=== PATIENT | male | born 1955 | race Caucasian/White ===

== ENCOUNTER 2018-06-19 08:38 | Inpatient (IN) | payer OTHER ==
[~2018-06-19] VITALS: Ht 157.5 cm; Wt 68.5 kg
[2018-06-19 08:50] VITALS: BP 147/64
--- NOTE | 2018-06-19 08:55 | NUR ---
c/o lower abd pain 8/10, n/v/d x 2 days. denies fever. abdomen is soft/flat/non tender, bowel sounds present x4, pt reports loss of appetite. SKIN IS PINK/WARM/DRY; AAOX4 WITH EVEN AND STEADY GAIT; LUNGS CLEAR BL; HR EVEN AND REGULAR; PT DENIES ANY FEVER, CP, SOB, OR COUGH AT THIS TIME; VSS; PATIENT POSITIONED FOR COMFORT; HOB ELEVATED; BEDRAILS UP X1; BED DOWN. ER MD MADE AWARE OF PT STATUS.
--- NOTE | 2018-06-19 09:00 | NUR ---
Patient ambulated to bed 11. RN evaluating patient at bedside.
--- NOTE | 2018-06-19 10:06 | NUR ---
Dr. Albarran evaluating patient at bedside.
[2018-06-19] MEDS ORDERED: PROG1 PO (10:07)
[2018-06-19] MEDS ORDERED: AMLO10TA PO ×2 (10:14→15:09)
[2018-06-19] MEDS ORDERED: CEL250 PO (10:14)
[2018-06-19] MEDS ORDERED: METO50TE2 PO (10:14)
[2018-06-19] MEDS ORDERED: PRED5TAB7 PO (10:14)
[2018-06-19] MEDS ORDERED: ASPI-1718 PO (10:14)
[2018-06-19] MEDS ORDERED: SULF-58 PO ×2 (10:14→15:09)
[2018-06-19] MEDS ORDERED: NACL 0.9% 1,000 ML IV ONE ×2 (10:37→13:10)
[2018-06-19] MEDS ORDERED: NACL 0.9% 1,000 ML IV SCH (10:37)
[2018-06-19] MEDS ORDERED: ONDANSETRON 4 MG/2 ML VIAL IVP ONE (10:40)
--- NOTE | 2018-06-19 10:53 | NUR ---
pt left to ct
--- NOTE | 2018-06-19 11:07 | NUR ---
PT RETURNED FROM CT, VSS AT THIS TIME, PT AA0X4. PT SITTING IN BED, FAMILY BEDSIDE.
[2018-06-19 11:10] LABS: APPEARANCE,URINE CLEAR (CLEAR); BILIRUBIN,URINE NEGATIVE (NEGATIVE); BLOOD, URINE 1+ (NEGATIVE); COLOR,URINE YELLOW (YELLOW); LEUKOCYTE ESTERASE ,URINE NEGATIVE (NEGATIVE); NITRITE, URINE NEGATIVE (NEGATIVE); UGLUCOSE 2+ (NEGATIVE)
[2018-06-19 11:19] LABS: RBC,URINE 0-5 /HPF (0-5); WBC,URINE 0-5 /HPF (0-5)
[2018-06-19 11:24] LABS: ALBUMIN 3.6 g/dL (3.4-5.0); AMYLASE 69 U/L (25-115); ANION GAP 14.7 (8-16); ASPARTATE AMINOTRANSFERASE 34 U/L (15-37); CARBON DIOXIDE 24.3 mmol/L (21-32); CHLORIDE 102 mmol/L (98-107); CREATININE 1.4 mg/dL (0.7-1.3); GFR ARICAN-AMERICAN 66 mL/min (>90); GLUCOSE 165 mg/dL (74-106); LIPASE 287 U/L (73-393); MAGNESIUM 1.5 mg/dL (1.8-2.4); SODIUM SERUM 137 mmol/L (136-145); TOTAL BILIRUBIN 0.7 mg/dL (0.0-1.0); UREA NITROGEN, BLOOD 21 mg/dL (7-18)
[2018-06-19 11:42] LABS: HEMATOCRIT 35.9 % (36-52); HEMOGLOBIN 12.1 g/dL (12.0-18.0); MEAN CORPUSCULAR HEMOGLOBIN 30 pg (27-31); MEAN CORPUSCULAR HGB CONC 34 g/dL (33-37); MEAN CORPUSCULAR VOLUME 88.7 fL (80-94); PLATELET COUNT (AUTO) 70 K/uL (140-450); RED BLOOD CELL COUNT(AUTO) 4.04 MIL/uL (4.20-6.10); RED CELL DISTRIBUTION WIDTH 13.4 % (11.6-13.7)
[2018-06-19 11:51] LABS: ACETONE, SERUM NEGATIVE (NEGATIVE)
[2018-06-19 11:59] LABS: WHITE BLOOD COUNT (AUTO) 1.4 K/uL (4.8-10.8)
[2018-06-19 12:06] LABS: LYMPHOCYTES % (MANUAL) 8 % (20-46)
[2018-06-19 12:07] LABS: EOSINOPHILS % (MANUAL) 2 % (0-4); MONOCYTES % (MANUAL) 12 % (5-12)
[2018-06-19] MEDS ORDERED: ONDANSETRON 4 MG/2 ML VIAL IVP PRN (13:00)
[2018-06-19] MEDS ORDERED: ACETAMINOPHEN 325 MG TAB PO PRN (13:00)
[2018-06-19] MEDS ORDERED: HYDROcodone/APAP 7.5/325 MG 1 TAB PO PRN (13:00)
--- NOTE | 2018-06-19 13:15 | NUR ---
PATIENT ARRIVED ON UNIT VIA WHEELCHAIR. RECEIVED HAND OFF REPORT FROM ER NURSE. DANNY. PT IS AWAKE AND STABLE IN BED.
[2018-06-19] MEDS ORDERED: DEXTROSE 50% 50 ML SYR IVP PRN (13:30)
--- NOTE | 2018-06-19 13:30 | NUR ---
AT PT BEDSIDE. DR USING BLUE PHONE TO COMMUNICATE WITH PATIENT.
[2018-06-19 13:51] LABS: BARBITURATE, URINE NEG. ng/ml (NEG <=200); BENZODIAZEPINE, URINE NEG. ng/mL (NEG <=200); CANNABINOID, URINE NEG. ng/mL (NEG <=50); COCAINE, URINE NEG. ng/mL (NEG <=300); OPIATE, URINE NEG. ng/mL (NEG <=2000); PHENCYCLIDINE SCREEN,URINE NEG. ng/mL (NEG <=25)
[2018-06-19 13:54] LABS: PROTHROMBIN TIME 10.4 secs (10.8-13.4)
[2018-06-19 13:59] LABS: FREE T4 (FREE THYROXINE) 1.14 ng/dL (0.76-1.46); PHOSPHORUS 2.2 mg/dL (2.5-4.9); THYROID STIMULATING HORMONE 1.62 uIU/mL (0.34-3.74)
--- NOTE | 2018-06-19 14:00 | NUR ---
PLACED PT ON NEUTROPENIC PRECAUTIONS.
[2018-06-19] MEDS ORDERED: METO25TA PO (15:10)
--- NOTE | 2018-06-19 15:15 | NUR ---
PT COMPLAINED OF HEAD PAIN. WILL ADMINISTER MEDICATION PER ORDERS.
--- NOTE | 2018-06-19 17:00 | NUR ---
FREQUENT ROUNDING ON PT. PT STABLE NO SIGNS OF DISTRESS. WILL CONTINUE TO MONITOR. ALL SAFETY MEASURES ARE IN PLACE.
--- NOTE | 2018-06-19 19:19 | NUR ---
ENDORSED PT TO FOUNDRY OPERATOR NURSE PT IS STABLE AND IN NO APPARENT DISTRESS.
--- NOTE | 2018-06-19 19:55 | NUR ---
Received endorsement from AM shift RN; patient is A/Ox4, able to make needs known, ambulatory, Telugu speaking. at bedside. Introduced self, updated board. No SOB or distress noted, on room air. On neutropenic precautions; observed and maintained. IV site on right hand, 22 gauge, intact, running IVF at 80mL/hr. Skin tact. Bed in the lowest position, annmarie light within reach. Initial assessment done. Will continue to monitor.
[2018-06-19] MEDS: BLOOD GLUCOSE MONITORING 1 DEV DEV FS SCH (21:00)
[2018-06-19] MEDS ORDERED: MYCOPHENOLATE 250 MG CAP PO SCH (21:00)
[2018-06-19] MEDS ORDERED: SULFAMETH/TRIMETH DS 800/160MG 1 TAB PO SCH (21:00)
[2018-06-19] MEDS ORDERED: DOCUSATE SODIUM 100 MG GELCAP PO SCH (21:00)
--- NOTE | 2018-06-19 21:55 | NUR ---
Due meds given; asked patient about bowel movement frequency; stated he has not had a bowel movement since 06/17/2018. Teaching given about need for a stool sample and placed collection hat on toilet. Verbalized understanding.
[2018-06-19] MEDS: TACROLIMUS 0.5 MG CAP PO SCH (21:59)
[2018-06-19] MEDS: MAGNESIUM OXIDE 400 MG TAB PO SCH (22:00)
[2018-06-19] MEDS: METOPROLOL 25 MG TAB PO SCH (22:00)
[2018-06-19] MEDS: DEXT 5% /NACL 0.9% 1,000 ML IV SCH (22:32)
--- NOTE | 2018-06-19 22:35 | NUR ---
Checks made, patient is watching TV, no SOB or distress noted.
[2018-06-20] VITALS: BP 164/67
--- NOTE | 2018-06-20 00:01 | NUR ---
Vitals taken, no distress noted.
--- NOTE | 2018-06-20 02:20 | NUR ---
Rounds made, no SOB or distress noted.
--- NOTE | 2018-06-20 04:24 | NUR ---
Frequent checks made. Patient asleep, eyes closed, visible chest rise and fall noted.
[2018-06-20 06:34] LABS: BASOPHILS % (AUTO) 0.6 % (0.0-2.0); EOSINOPHILS % (AUTO) 2.2 % (0.0-4.0); HEMATOCRIT 35.3 % (36-52); HEMOGLOBIN 11.9 g/dL (12.0-18.0); LYMPHOCYTES # (AUTO) 0.1 K/uL (2.0-11.5); LYMPHOCYTES % (AUTO) 12.1 % (20.5-51.1); MEAN CORPUSCULAR HEMOGLOBIN 30 pg (27-31); MEAN CORPUSCULAR HGB CONC 34 g/dL (33-37); MEAN CORPUSCULAR VOLUME 89.3 fL (80-94); MONOCYTES # (AUTO) 0.4 K/uL (0.8-1.0); MONOCYTES % (AUTO) 33.2 % (1.7-9.3); NEUTROPHILS # (AUTO) 0.6 K/uL (1.8-7.7); NEUTROPHILS % (AUTO) 51.9 % (42.2-75.2); PLATELET COUNT (AUTO) 67 K/uL (140-450); RED BLOOD CELL COUNT(AUTO) 3.95 MIL/uL (4.20-6.10); RED CELL DISTRIBUTION WIDTH 13.6 % (11.6-13.7)
[2018-06-20] MEDS: BLOOD GLUCOSE MONITORING 1 DEV DEV FS SCH ×4 (06:45→21:00)
[2018-06-20 06:53] LABS: ANION GAP 12.2 (8-16); CREATININE 1.3 mg/dL (0.7-1.3); POTASSIUM 4.2 mmol/L (3.5-5.1)
[2018-06-20 06:55] LABS: WHITE BLOOD COUNT (AUTO) 1.1 K/uL (4.8-10.8)
[2018-06-20 07:16] LABS: CHOL/HDL RATIO 4.6 (1-4.5)
--- NOTE | 2018-06-20 07:20 | NUR ---
Received call from lab for critical low of WBC 1.1. Dr. Capellan made aware; pending orders.
--- NOTE | 2018-06-20 07:25 | NUR ---
Endorsed patient to AM shift RN for continuity of care; patient in stable condition.
[2018-06-20 08:00] VITALS: BP 158/75
--- NOTE | 2018-06-20 08:00 | NUR ---
PATIENT WAS AWAKE, ALERT. RESPIRATION EVEN, UNLABOR ON ROOM AIR. SKIN DRY AND WARM. IV PATENT AND INTACT. DENIED PAIN, N/V AT THIS TIME. PLAN OF CARE WAS DISCUSSED WITH PATIENT. BED AT LOW POSITION, SIDE RAILS UP. CALL LIGHT WITHIN REACH.
--- NOTE | 2018-06-20 08:09 | NUR ---
PATIENT HAS BEEN SCREENED AND CATEGORIZED HIGH NUTRITION RISK. PATIENT WILL BE SEEN WITHIN 1-2 DAYS OF ADMISSION. 06/20/18-06/21/[address]
[2018-06-20] MEDS: METOPROLOL 25 MG TAB PO SCH ×2 (08:54→22:04)
[2018-06-20] MEDS: predniSONE 5 MG TAB PO SCH (08:55)
[2018-06-20] MEDS: AZITHROMYCIN 250 MG TAB PO SCH (08:55)
[2018-06-20] MEDS: TACROLIMUS 0.5 MG CAP PO SCH ×2 (08:56→22:05)
[2018-06-20] MEDS: MAGNESIUM OXIDE 400 MG TAB PO SCH ×2 (08:56→22:04)
[2018-06-20] MEDS: ASPIRIN 81 MG TAB.CHEW PO SCH (08:56)
[2018-06-20] MEDS: amLODIPine 5 MG TAB PO SCH (08:56)
[2018-06-20 09:09] LABS: MAGNESIUM 1.2 mg/dL (1.8-2.4); PHOSPHORUS 2.6 mg/dL (2.5-4.9); THYROID STIMULATING HORMONE 1.73 uIU/mL (0.34-3.74); URIC ACID 4.8 mg/dL (2.6-7.2)
--- NOTE | 2018-06-20 10:00 | NUR ---
PATIENT WAS AWAKE, ALERT. RESPIRATION EVEN, UNLABOR ON ROOM AIR. NO DISTRESS NOTED AT THIS TIME
[2018-06-20] MEDS ORDERED: MAG SULF 2000 MG/WATER PREMIX 50 ML IV SCH (11:00)
[2018-06-20] MEDS: DEXT 5% /NACL 0.9% 1,000 ML IV SCH (11:21)
--- NOTE | 2018-06-20 12:30 | NUR ---
PATIENT WAS AWAKE, ALERT, EATING LUNCH COMFORTABLY. RESPIRATION EVEN, UNLABOR ON ROOM AIR. DENIED PAIN AT THIS TIME. NO DISTRESS NOTED. FAMILY AT BEDSIDE. CALL LIGHT WITHIN REACH
[2018-06-20] MEDS: INSULIN LISPRO SLIDING SCALE 100 UNITS/ML VIAL SUBQ PRN ×3 (12:33→22:27)
--- NOTE | 2018-06-20 14:24 | NUR ---
RECEIVED A CALL FROM AIDAN FROM [facility] THIS MORNING,. 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 I CALLED AND INFORMED HER. Addendum: 06/20/18 at 1427 by Sheila Carter CM PHONE MAREK [facility] [phone]
--- NOTE | 2018-06-20 14:30 | NUR ---
PATIENT WAS RESTING COMFORTABLY. RESPIRATION EVEN, UNLABOR ON ROOM AIR. NO DISTRESS NOTED AT THIS TIME
--- NOTE | 2018-06-20 14:32 | NUR ---
06/20/18 RD INITIAL ASSESSMENT COMPLETED PLEASE REFER TO NUTRITION ASSESSMENT UNDER CARE ACTIVITY FOR ESTIMATED NUTRITIONAL NEEDS. 1. CONTINUE FULL LIQUID DIET TOLERATED 2. IF/WHEN PATIENT IS MEDICALLY STABLE CONSIDER ADVANCING DIET TO CCHO 60 GM TOLERATED 3. RECOMMEND GLUCERNA BID 4. RD PROVIDED NUTRITION EDUCATION ON NAUSEA AND VOMITING 5. RD TO FOLLOW-UP 3-5 DAYS, MODERATE RISK SHRUTHI FRAZIER RD
--- NOTE | 2018-06-20 15:30 | NUR ---
STOOL SAMPLE WAS COLLECTED AND SENT TO LAB PER ORDER
[2018-06-20 16:00] VITALS: BP 139/63
--- NOTE | 2018-06-20 16:00 | NUR ---
PATIENT WAS AWAKE, ALERT, SITTING ON THE CHAIR COMFORTABLY. RESPIRATION EVEN, UNLABOR ON ROOM AIR. NO DISTRESS NOTED AT THIS TIME
[2018-06-20] MEDS: NACL 0.9% 1,000 ML IV SCH (17:02)
--- NOTE | 2018-06-20 18:43 | NUR ---
PATIENT WAS RESTING COMFORTABLY. RESPIRATION EVEN, UNLABOR ON ROOM AIR. DENIED PAIN AT THIS TIME. IV PATENT AND INTACT. NO DISTRESS NOTED AT THIS TIME. FAMILY AT BEDSIDE. CALL LIGHT WITHIN REACH
--- NOTE | 2018-06-20 19:29 | NUR ---
ENDORSEMENT GIVEN TO FOREIGN CORRESPONDENT NURSE. PATIENT IS STABLE AT THIS TIME
--- NOTE | 2018-06-20 19:30 | NUR ---
RECEIVED REPORT FROM DAY SHIFT RN. PATIENT RESTING IN BED WITH FAMILY AT BEDSIDE, NO SIGNS OF DISTRESS ON RA. SAFETY PRECAUTIONS IN PLACE. WILL CONTINUE TO MONITOR.
--- NOTE | 2018-06-20 22:05 | NUR ---
ADMINISTERED SCHEDULED MEDICATIONS. PATIENT TOLERATED ALL MEDICATIONS WELL. NO SIGNS OF DISTRESS ON RA. WILL CONTINUE TO MONITOR.
[2018-06-21] VITALS: BP 131/62
--- NOTE | 2018-06-21 00:15 | NUR ---
PATIENT SLEEPING. VITALS STABLE. SAFETY PRECAUTIONS IN PLACE. WILL CONTINUE TO MONITOR.
--- NOTE | 2018-06-21 03:25 | NUR ---
PATIENT STILL SLEEPING. NO SIGNS OF DISTRESS. WILL CONTINUE TO MONITOR.
[2018-06-21] MEDS: NACL 0.9% 1,000 ML IV SCH ×2 (05:20→17:34)
[2018-06-21] MEDS: BLOOD GLUCOSE MONITORING 1 DEV DEV FS SCH ×4 (07:08→20:34)
--- NOTE | 2018-06-21 07:41 | NUR ---
ENDORSED PATIENT TO DAY SHIFT RN FOR CONTINUITY OF CARE. PATIENT STABLE, SAFETY PRECAUTIONS IN PLACE.
--- NOTE | 2018-06-21 07:42 | NUR ---
RECEIVED REPORT FROM HOUSEKEEPER AND LAUNDRY ASSISTANT NURSE ANGEL AT BEDSIDE FOR CONTINUITY OF CARE. PT IN STABLE CONDITION. RESPIRATIONS EVEN AND UNLABORED. IV INTACT AND PATENT. SAFETY MEASURES IN PLACE. BED IN LOW POSITION. CALL LIGHT AT BEDSIDE. WILL CONTINUE TO MONITOR.
[2018-06-21 08:00] VITALS: BP 142/60
[2018-06-21 08:18] LABS: ANION GAP 12.7 (8-16); CARBON DIOXIDE 22.5 mmol/L (21-32); CREATININE 1.3 mg/dL (0.7-1.3); POTASSIUM 4.2 mmol/L (3.5-5.1)
[2018-06-21 08:41] LABS: BASOPHILS % (AUTO) 0.5 % (0.0-2.0); EOSINOPHILS % (AUTO) 2.5 % (0.0-4.0); HEMATOCRIT 35.1 % (36-52); HEMOGLOBIN 11.9 g/dL (12.0-18.0); LYMPHOCYTES # (AUTO) 0.2 K/uL (2.0-11.5); LYMPHOCYTES % (AUTO) 13.7 % (20.5-51.1); MEAN CORPUSCULAR HEMOGLOBIN 30 pg (27-31); MEAN CORPUSCULAR HGB CONC 34 g/dL (33-37); MEAN CORPUSCULAR VOLUME 88.5 fL (80-94); MONOCYTES # (AUTO) 0.5 K/uL (0.8-1.0); MONOCYTES % (AUTO) 34.5 % (1.7-9.3); NEUTROPHILS # (AUTO) 0.6 K/uL (1.8-7.7); NEUTROPHILS % (AUTO) 48.8 % (42.2-75.2); PLATELET COUNT (AUTO) 72 K/uL (140-450); RED BLOOD CELL COUNT(AUTO) 3.96 MIL/uL (4.20-6.10); RED CELL DISTRIBUTION WIDTH 13.4 % (11.6-13.7)
[2018-06-21] MEDS: ASPIRIN 81 MG TAB.CHEW PO SCH (08:57)
[2018-06-21] MEDS: amLODIPine 5 MG TAB PO SCH (08:58)
[2018-06-21] MEDS: predniSONE 5 MG TAB PO SCH (08:58)
[2018-06-21 08:59] LABS: WHITE BLOOD COUNT (AUTO) 1.3 K/uL (4.8-10.8)
--- NOTE | 2018-06-21 08:59 | NUR ---
CRITICAL LAB WBC 1.3 DR. BECERRIL NOTIFIED.
[2018-06-21] MEDS ORDERED: SULFAMETH/TRIMETH DS 800/160MG 1 TAB PO SCH (09:00)
[2018-06-21] MEDS: METOPROLOL 25 MG TAB PO SCH ×2 (09:00→20:33)
[2018-06-21] MEDS: MAGNESIUM OXIDE 400 MG TAB PO SCH ×2 (09:00→20:33)
--- NOTE | 2018-06-21 09:00 | NUR ---
ELECTRICAL ENGINEERING TEACHER [id number] USED TO INFORM PT OF MEDICATIONS GIVEN. PT VERBALIZED UNDERSTANDING OF MEDICATIONS GIVEN. PT DENIED ANY PAIN AT THIS TIME. ALL QUESTIONS ANSWERED AT THIS TIME. BED IN LOW POSITION. CALL LIGHT INSTRUCTIONS GIVEN. CALL LIGHT AT BEDSIDE. WILL CONTINUE TO MONITOR.
[2018-06-21] MEDS: TACROLIMUS 0.5 MG CAP PO SCH ×2 (09:01→20:33)
[2018-06-21] MEDS: AZITHROMYCIN 250 MG TAB PO SCH (09:01)
--- NOTE | 2018-06-21 12:45 | NUR ---
GAVE 6 UNITS HUMALOG FOR BS AT 269. PT TOLERATED WELL. WILL CONTINUE TO MONITOR.
[2018-06-21] MEDS: INSULIN LISPRO SLIDING SCALE 100 UNITS/ML VIAL SUBQ PRN ×2 (12:56→20:44)
--- NOTE | 2018-06-21 14:30 | NUR ---
PT SITTING IN CHAIR IN STABLE CONDITION. WILL CONTINUE TO MONITOR.
--- NOTE | 2018-06-21 17:15 | NUR ---
WASHROOM CLEANER GUANACO [id number] USED TO INFORM PT OF CONTACT PRECAUTIONS.
--- NOTE | 2018-06-21 17:18 | NUR ---
PT LYING IN BED IN STABLE CONDITION WITH FAMILY AT BEDSIDE. FAMILY MEMBER INSTRUCTED TO WEAR MASK FOR NEUTROPENIC PRECAUTIONS AND GOWN AND GLOVES FOR CONTACT PRECAUTIONS DUE TO POSITIVE RESULT MDRO ECOLI.
--- NOTE | 2018-06-21 19:30 | NUR ---
GAVE BEDSIDE REPORT TO IMAGING NURSE NURSE ANGEL FOR CONTINUITY OF CARE. PT IN STABLE CONDITION.
--- NOTE | 2018-06-21 19:32 | NUR ---
RECEIVED REPORT FROM DAY SHIFT RN. PATIENT IN STABLE CONDITION. NO SIGNS OF DISTRESS ON RA. FAMILY AT BEDSIDE. WILL CONTINUE TO MONITOR
--- NOTE | 2018-06-21 19:45 | NUR ---
SPOKE TO DR. MAR ABOUT THE ADDITION OF LANTUS TO PATIENT EVENING GLUCOSE CONTROL REGIMENT. REVIEWED PREVIOUS AM GLUCOSE READINGS. PER DR. MAR CONTINUE WITH INSULIN REGIMENT SCHEDULED.
--- NOTE | 2018-06-21 19:45 | NUR ---
ALSO SPOKE TO DR. MAR ABOUT MAG LAB VALUE OF 1.2. PATIENT IS RECEIVING ORAL MAG-OXIDE AT 2100, WHICH IS HIS DAILY SUPPLEMENT. PRE DR. MAR, PROCEED WITH ORAL DOSING. NO NEED FOR IV MAG AT THIS TIME. Addendum: 06/22/18 at 0415 by Annamaria Henriquez RN MAG VALUE WAS 1.7 NOT 1.2
--- NOTE | 2018-06-21 20:33 | NUR ---
ADMINISTERED SCHEDULED MEDICATIONS. PATIENT TOLERATED WELL. VITALS STABLE. NO SIGNS OF DISTRESS ON RA. SAFETY PRECAUTIONS IN PLACE.
[2018-06-21] MEDS ORDERED: INSULIN LANTUS 100 UNITS/ML 10 ML VIAL SUBQ SCH (21:00)
--- NOTE | 2018-06-21 22:35 | NUR ---
PATIENT SLEEPING. NO SIGNS OF DISTRESS.
[2018-06-22] VITALS: BP 156/60
--- NOTE | 2018-06-22 00:30 | NUR ---
PATIENT SLEEPING, VITALS STABLE. NO SIGNS OF DISTRESS ON RA.
--- NOTE | 2018-06-22 03:13 | NUR ---
PATIENT SLEEPING BUT WAKES EASILY, NO SIGNS OF DISTRESS. WILL CONTINUE TO MONITOR.
--- NOTE | 2018-06-22 05:35 | NUR ---
PATIENT SLEEPING. NO SIGNS OF DISTRESS ON RA.
[2018-06-22] MEDS: NACL 0.9% 1,000 ML IV SCH (06:26)
[2018-06-22] MEDS: BLOOD GLUCOSE MONITORING 1 DEV DEV FS SCH ×2 (06:32→11:37)
[2018-06-22] MEDS ORDERED: AZIT250T3 PO (07:13)
--- NOTE | 2018-06-22 07:25 | NUR ---
GAVE BEDSIDE REPORT TO DAY SHIFT RN. ENDORSING FOR CONTINUITY OF CARE. PATIENT STABLE.
--- NOTE | 2018-06-22 07:27 | NUR ---
RECEIVED BEDSIDE REPORT FROM ORACLE WEBCENTER CONSULTANT NURSE FOR CONTINUITY OF CARE. PATIENT IS AOX4, SCOTTISH SPEAKING. PATIENT IS RESTING ON BED AT THIS TIME. ABLE TO FOLLOW COMMAND AND MAKE NEEDS KNOWN. DENIES PAIN, SOB, NAUSEA, VOMITING AND DIARRHEA. RESPIRATION EVEN AND UNLABORED. ON RA. NO SIGNS OF DISTRESS NOTED. IV ON R HAND 22, DRY AND INTACT, INFUSING PER MD ORDER. LEFT ARM AV FISTULA NOTED, SIGN FOR NO BP AND NO VENIPUNCTURE ON LEFT ARM POSTED. SKIN CLEAN AND INTACT. PATIENT IS ABLE TO AMBULATE AND CONTINENT. DISCUSSED PLAN OF CARE WITH PATIENT AND PATIENT VERBALIZED OK. INSTRUCTED PATIENT TO USE THE CALL LIGHT FOR ANY ASSISTANCE AND PATIENT WAS AWARE. BED IN LOW POSITION AND CALL LIGHT WITHIN REACH.
[2018-06-22 08:00] VITALS: BP 157/67
[2018-06-22] MEDS: predniSONE 5 MG TAB PO SCH (08:00)
[2018-06-22] MEDS: amLODIPine 5 MG TAB PO SCH (08:01)
[2018-06-22] MEDS: ASPIRIN 81 MG TAB.CHEW PO SCH (08:01)
--- NOTE | 2018-06-22 08:05 | NUR ---
ADMINISTERED AM MEDS PER MD ORDER, PATIENT TOLERATED WELL. PATIENT IS SITTING UP ON EDGE OF BED AND EATING BREAKFAST. NO SIGNS OF DISTRESS NOTE. INSTRUCTED PATIENT TO USE THE CALL LIGHT FOR ANY ASSISTANCE AND PATIENT WAS AWARE.
[2018-06-22 08:08] LABS: ANION GAP 15.1 (8-16); CARBON DIOXIDE 21.9 mmol/L (21-32); CREATININE 1.2 mg/dL (0.7-1.3)
[2018-06-22 08:11] LABS: HEMATOCRIT 32.3 % (36-52); HEMOGLOBIN 11.1 g/dL (12.0-18.0); MEAN CORPUSCULAR HEMOGLOBIN 30 pg (27-31); MEAN CORPUSCULAR HGB CONC 34 g/dL (33-37); MEAN CORPUSCULAR VOLUME 88.1 fL (80-94); PLATELET COUNT (AUTO) 66 K/uL (140-450); RED BLOOD CELL COUNT(AUTO) 3.67 MIL/uL (4.20-6.10); RED CELL DISTRIBUTION WIDTH 13.5 % (11.6-13.7)
[2018-06-22 08:15] LABS: MAGNESIUM 1.3 mg/dL (1.8-2.4); PHOSPHORUS 2.4 mg/dL (2.5-4.9)
--- NOTE | 2018-06-22 08:26 | NUR ---
RECEIVED CRITICAL LAB FOR WBC 1.0 FROM AM LAB. REPORTED TO DR MYLES AND WAS AWARE.
[2018-06-22 08:36] LABS: BASOPHILS % (MANUAL) 0 % (0-2); EOSINOPHILS % (MANUAL) 2 % (0-4); LYMPHOCYTES % (MANUAL) 6 % (20-46); MONOCYTES % (MANUAL) 30 % (5-12)
[2018-06-22] MEDS ORDERED: MAG SULF 2000 MG/WATER PREMIX 50 ML IV ONE (09:10)
[2018-06-22] MEDS: AZITHROMYCIN 250 MG TAB PO SCH (09:55)
[2018-06-22] MEDS: METOPROLOL 25 MG TAB PO SCH (09:56)
[2018-06-22] MEDS: MAGNESIUM OXIDE 400 MG TAB PO SCH (09:56)
[2018-06-22] MEDS: TACROLIMUS 0.5 MG CAP PO SCH (09:57)
--- NOTE | 2018-06-22 09:58 | NUR ---
B/P TAKEN; B/P 143/66, MAP 91 AND PULSE 79. ADMINISTERED MEDS PER MD ORDER, PATIENT TOLERATED WELL. ADMINISTERED IVP MG PER MD ORDER FOR LOW MG VALUE 1.3 FROM AM LAB. PATIENT IS RESTING ON BED AT THIS TIME. DENIES PAIN, SOB, NAUSEA, VOMITING AND DIARRHEA. NO SIGNS OF DISTRESS NOTED.
[2018-06-22] MEDS ORDERED: LEVOFLOXACIN 500 MG/D5W PREMIX 100 ML IV SCH (11:00)
[2018-06-22] MEDS ORDERED: LEVO750T2 PO (11:13)
[2018-06-22] MEDS ORDERED: LACT10CA1 PO (11:14)
[2018-06-22] MEDS ORDERED: INSU100S22 SUBQ (11:17)
[2018-06-22] MEDS: INSULIN LISPRO SLIDING SCALE 100 UNITS/ML VIAL SUBQ PRN (11:45)
--- NOTE | 2018-06-22 11:47 | NUR ---
PATIENT IS TALKING TO FAMILY MEMBERS AT BEDSIDE. NO SIGNS OF DISTRESS NOTED. INSTRUCTED FAMILY MEMBERS TO PUT ON PPE AT ALL TIME DUE TO PATIENT IS IN CONTACT ISOLATION AND NEUTROPENIC PRECAUTIONS, AND FAMILY MEMBERS VERBALIZED UNDERSTANDING. INSTRUCTED PATIENT TO USE CALL LIGHT FOR ANY ASSISTANCE AND PATIENT WAS AWARE.
[2018-06-22] MEDS ORDERED: SODIUM PHOS / POTASSIUM PHOS 1 PKT PDR PO SCH ×2 (12:25→21:00)
[2018-06-22] MEDS ORDERED: MAG SULF 2000 MG/WATER PREMIX 100 ML IV ONE (12:25)
--- NOTE | 2018-06-22 13:23 | NUR ---
PATIENT IS SITTING UP ON A CHAIR AND TALKING TO AT BEDSIDE. NO SIGNS OF DISTRESS NOTED. INSTRUCTED PATIENT TO USE THE CALL LIGHT FOR ANY ASSISTANCE AND PATIENT WAS AWARE.
--- NOTE | 2018-06-22 14:00 | NUR ---
DISCHARGE INSTRUCTION PROVIDED TO PATIENT PREFERRED LANGUAGE [employer]OUGH [employer], BOTTLE LINE WORKER AUTUMN ID# [id number]. EDUCATED PATIENT ON MD FOLLOW UP, BRING ALL THE DISCHARGE DOCUMENTS TO FOLLOW UP VISIT WITH MD, MEDICATIONS REGIMEN AND SIDE EFFECTS, DISEASE MANAGEMENT, SIGNS AND SYMPTOMS, AND GO TO THE NEAREST EMERGENCY IF EXPERIENCING PAIN, SWELLING, FEVER, SHORTNESS OF BREATH, AND OR WORSEN SYMPTOMS, PATIENT VERBALIZED UNDERSTANDING. PATIENT ACKNOWLEDGED THAT HE CAN BAND SINGER HIS PRESCRIBED MEDICATIONS FROM HIS PREFERRED PHARMACY [facility]. PATIENT SIGNED ALL DISCHARGE DOCUMENTS. WAS AT BEDSIDE.
--- NOTE | 2018-06-22 14:15 | NUR ---
PATIENT IS CHANGING INTO HIS OWN CLOTHES AND USING THE BATHROOM AT THIS TIME. IS AT BEDSIDE. NO SIGNS OF DISTRESS NOTED.
--- NOTE | 2018-06-22 14:30 | NUR ---
REMOVED IV AND IV CANNULA INTACT, MINIMAL BLEEDING AT IV SITE, SECURED WITH GUARD AND TAPE. PATIENT TOLERATED WELL. REMOVED ALL ID BANDS. PATIENT TOOK ALL HIS BELONGS. ESCORTED PATIENT TO THE LOBBY WITH THE WHEELCHAIR. PATIENT IS DISCHARGE AT THIS TIME AND HE IS IN STABLE CONDITION.
== END 2018-06-22 14:30 | disposition home or self-care (01) | DRG 808 ==
LOC: MED 08:38 → MTU 13:04
PROVIDERS: ADMIT General Practice; ATTEND General Practice
DX: D70.2 Other drug-induced agranulocytosis (principal); N17.0 Acute kidney failure with tubular necrosis; N18.6 End stage renal disease; I12.0 Hypertensive chronic kidney disease with stage 5 chronic kidney disease or end stage renal disease; N39.0 Urinary tract infection, site not specified; Z94.0 Kidney transplant status; K52.9 Noninfective gastroenteritis and colitis, unspecified; E83.42 Hypomagnesemia; E83.39 Other disorders of phosphorus metabolism; B96.20 Unspecified Escherichia coli [E. coli] as the cause of diseases classified elsewhere; D69.59 Other secondary thrombocytopenia; E11.22 Type 2 diabetes mellitus with diabetic chronic kidney disease; E86.0 Dehydration; T50.905A Adverse effect of unspecified drugs, medicaments and biological substances, initial encounter; Z79.899 Other long term (current) drug therapy; Z83.3 Family history of diabetes mellitus; Z99.2 Dependence on renal dialysis; Z79.82 Long term (current) use of aspirin; Y92.89 Other specified places as the place of occurrence of the external cause
CPT/HCPCS: 36415; 71045; 80048; 80053; 80305; 81001; 82009; 82150; 82948; 83036; 83690; 83735; 83880; 84100; 84439; 84443; 84550; 85025; 85610; 85730; 87040; 87045; 87070; 87081; 87086; 87186; 87804; 89055; 93976; 96374; 99285; J0696; J1815; J1956; J2405; J3475; J7030; J7042; J7060; J7507; J7512; Q0092